=== PATIENT | female | born 1960 | race Caucasian/White ===

== ENCOUNTER 2018-03-04 21:44 | Emergency (ER) | payer OTHER ==
[~2018-03-04] VITALS: Ht 147.3 cm; Wt 74.8 kg
[~2018-03-04 21:44] MED LIST: BP; CHOLESTEROL MED; CIPROFLOXACIN500 M1 PO; GLUCOPHAGE XR500 MG PO; HUMULIN 70100 UNIT/2 IJ; LIPITOR 20 MG T20 M1 PO; LISINOPRIL5 MG PO; NORVASC5 MG PO; NOVOLOG100 UNIT/1 SQ
[2018-03-04] MEDS ORDERED: LEVEMIR SUBQ (22:16)
[2018-03-04] MEDS ORDERED: ASPIR 8181 MG PO (22:16)
[2018-03-04 22:22] LABS: URINE CLARITY SL HAZY; URINE COLOR YELLOW; URINE GLUCOSE-RANDOM* NEGATIVE (Negative); URINE PROTEIN (DIPSTICK) NEGATIVE (Negative)
[2018-03-04 22:23] LABS: URINE BILIRUBIN NEGATIVE (Negative); URINE BLOOD TRACE (Negative); URINE KETONES NEGATIVE (Negative); URINE LEUKOCYTES-REFLEX 2+ (Negative); URINE NITRITE-REFLEX NEGATIVE (Negative); URINE UROBILINOGEN 0.2 E.U./dl (0.2-1.0)
[2018-03-04 22:28] LABS: CASTS None Seen /LPF (None Seen); SQUAMOUS 4-10 Moderate /LPF (0-3); URINE WBC-REFLEX >25 Many /HPF (0-5)
[2018-03-04 22:29] LABS: BACTERIA-REFLEX >30 Many /HPF (None Seen); CRYSTALS None Seen /LPF (None Seen); URINE RBC 0-2 Rare /HPF (0-2)
[2018-03-04 22:36] LABS: HEMATOCRIT 32.7 % (37.0-47.0); HEMOGLOBIN 11.2 gm/dL (12.0-15.0); MCH 31.4 pg (26.0-34.0); MCHC 34.2 g/dL (28.0-37.0); MCV 91.7 fL (80.0-100.0); RBC 3.56 mil/uL (4.20-5.00); RDW 12.9 % (10.5-14.5); WBC 15.9 thou/uL (4.0-11.0)
[2018-03-04 22:45] LABS: ANION GAP 12 mmol/L (7-16); BUN 40 mg/dL (7-18); CALCIUM 8.7 mg/dL (8.5-10.1); CHLORIDE 99 mmol/L (98-107); CO2 25 mmol/L (21-32); CREATININE 1.7 mg/dL (0.6-1.0); GLUCOSE 195 mg/dL (74-106); POTASSIUM 3.6 mmol/L (3.5-5.1); SODIUM 136 mmol/L (136-145)
[2018-03-04 22:54] LABS: ALBUMIN 3.5 g/dL (3.4-5.0); LIPASE 280 U/L (73-393); SGOT 25 U/L (15-37); SGPT 46 U/L (30-65); TOTAL BILIRUBIN 0.3 mg/dL (<0.1-1.0); TOTAL PROTEIN 8.1 g/dL (6.4-8.2); TROPONIN-I <0.06 ng/mL (<0.06)
[2018-03-05] MEDS ORDERED: KEFLEX500 M1 PO (02:02)
[2018-03-05 02:12] VITALS: BP 162/80
--- NOTE | 2018-03-05 08:51 | EKG ---
[address] [address] ELECTROCARDIOGRAM REPORT Name: FLORENCIA NEGRETE Room #: DEP [facility]#: [id number] Admission: 03/04/18 Attend Phys: Discharge: 03/05/18 Date of : 64 Report #: [id number] THIS REPORT FOR: //name// [facility] ED Test Date: 2018-03-04 Test Time: 22:32:32 Pat Name: FLORENCIA NEGRETE Department: Room: Gender: F Online Content Developer: ABDIEL : 1960 Requested By: Ghazal Kasper Order Number: [id number] MD: Conner Lord Measurements Intervals [place] Rate: 103 P: 40 TX: 147 QRS: -11 QRSD: 84 T: 61 QT: 357 QTc: 468 Interpretive Statements Sinus tachycardia Otherwise no significant abnormality Compared to ECG 02/24/2015 12:44:50 No significant changes Electronically Signed On 03-05-2018 8:51:46 [employer]UAL [employer]NAGER by Conner Lord [email or web address] <ELECTRONICALLY SIGNED> By: Conner Lord MD, [facility] 03/05/18 0851 31 31 Conner Lord MD, FACC /EPI
== END 2018-03-05 02:12 | disposition home or self-care (01) ==
LOC: ER 21:44
PROVIDERS: Student in an Organized Health Care Education/Training Program
DX: S30.1XXA Contusion of abdominal wall, initial encounter (principal); K44.9 Diaphragmatic hernia without obstruction or gangrene; K59.00 Constipation, unspecified; N39.0 Urinary tract infection, site not specified; E11.9 Type 2 diabetes mellitus without complications; E78.00 Pure hypercholesterolemia, unspecified; I10 Essential (primary) hypertension; Z98.890 Other specified postprocedural states; Z79.4 Long term (current) use of insulin; Z88.2 Allergy status to sulfonamides; X58.XXXA Exposure to other specified factors, initial encounter; Y93.89 Activity, other specified; Y92.89 Other specified places as the place of occurrence of the external cause; Y99.8 Other external cause status

== ENCOUNTER 2019-04-10 11:28 | Emergency (ER) | payer OTHER ==
[~2019-04-10] VITALS: Ht 162.6 cm; Wt 65.8 kg
[~2019-04-10 11:28] MED LIST changes: +ASPIR 8181 MG PO; +KEFLEX500 M1 PO; +LEVEMIR SUBQ
[2019-04-10] MEDS ORDERED: TESSALON PERLE100 MG PO (15:07)
[2019-04-10] MEDS ORDERED: VENTOLIN HFA 1818 GM INH (15:07)
[2019-04-10 15:37] VITALS: BP 109/57
== END 2019-04-10 15:37 | disposition home or self-care (01) ==
LOC: ER 11:28
DX: J06.9 Acute upper respiratory infection, unspecified (principal); J98.01 Acute bronchospasm; I10 Essential (primary) hypertension; E11.9 Type 2 diabetes mellitus without complications; E78.00 Pure hypercholesterolemia, unspecified; Z98.890 Other specified postprocedural states; Z88.2 Allergy status to sulfonamides